=== PATIENT | female | born 1985 | race Caucasian/White ===

== ENCOUNTER 2020-12-01 14:01 | Emergency (ER) | payer BC ==
[~2020-12-01] VITALS: Ht 177.8 cm; Wt 90.7 kg
[~2020-12-01 14:01] MED LIST: Mirena1 EACH VG
[2020-12-01] MEDS ORDERED: Norco 10-325 T1 EACH PO (16:19)
[2020-12-01] MEDS ORDERED: ONDA4ODT MM (16:19)
== END 2020-12-01 16:36 | disposition home or self-care (01) ==
LOC: ER 14:01
DX: S89.92XA Unspecified injury of left lower leg, initial encounter (principal); V86.56XA Driver of dirt bike or motor/cross bike injured in nontraffic accident, initial encounter; Y99.1 Military activity
CPT/HCPCS: 29505; 73562-LT; 99283-25; A9270

== ENCOUNTER 2020-12-17 12:11 | Day surgery (SDC) | payer BC ==
[~2020-12-17] VITALS: Ht 172.7 cm; Wt 84.2 kg
[~2020-12-17 12:11] MED LIST changes: +Norco 10-325 T1 EACH PO; +ONDA4ODT MM
--- NOTE | 2020-12-17 13:13 | NUR ---
12/17/20 1313 Raissa Oropeza BLOOD DRAWN AND ANTICOAG IS ADDED TO SPECIMEN AND THEN DELIVERED TO THE OR TO BE SPUN.
[2020-12-17] MEDS ORDERED: ASPI325 (13:44)
--- NOTE | 2020-12-17 15:06 | NUR ---
12/17/20 1506 Eulalio Le 1MG OF EPI ADDED TO FIRST 3 BAGS OF LR USED FOR JOINT IRRIGATION.
--- NOTE | 2020-12-17 18:02 | NUR ---
12/17/201801 Ashley Rivera PT BECAME NAUSEOUS UPON TRANSFERING FROM BED TO CHAIR. PT IN BED, VSS, TOLERATING LIQUID. PT REPORTS NO PAIN IN OPERATIVE LEG. EMESIS BAG WITHIN REACH. PT GIVEN ZOFRAN 4MG IV WITH SOME RELIEF.
== END 2020-12-17 19:00 | disposition home or self-care (01) ==
LOC: ORSCSDS 12:11
PROVIDERS: Orthopaedic Surgery
PROC: 0SBD4ZZ Excision of Left Knee Joint, Percutaneous Endoscopic Approach (ICD-10-PCS; principal; 2020-12-17 13:15)
PROC: 0MRP47Z Replacement of Left Knee Bursa and Ligament with Autologous Tissue Substitute, Percutaneous Endoscopic Approach (ICD-10-PCS; principal; 2020-12-17 13:15)
DX: S83.512A Sprain of anterior cruciate ligament of left knee, initial encounter (principal); S83.005A Unspecified dislocation of left patella, initial encounter; S83.412A Sprain of medial collateral ligament of left knee, initial encounter; M23.672 Other spontaneous disruption of capsular ligament of left knee; S83.282A Other tear of lateral meniscus, current injury, left knee, initial encounter; V29.9XXA Motorcycle rider (driver) (passenger) injured in unspecified traffic accident, initial encounter
CPT/HCPCS: C1713; C1762; J0171; J0690; J1100; J1885; J2250; J2405; J2550; J2704; J2765; J3010; J7120

== ENCOUNTER 2021-03-25 07:07 | Day surgery (SDC) | payer BC ==
[~2021-03-25] VITALS: Ht 172.7 cm; Wt 80.6 kg
[~2021-03-25 07:07] MED LIST changes: +ASPI325
--- NOTE | 2021-03-25 08:12 | NUR ---
03/25/21 0812 Raissa Oropeza BLOOD DRAWN FOR PRP, ANTICOAG ADDED TO SPECIMEN, SPECIMIN DELIVERED TO OR AND SPUN.
--- NOTE | 2021-03-25 09:05 | NUR ---
03/25/21 0905 Mercedes Schilling BUPIVACAINE 0.5% 30ML MIXED WITH EPI 0.15MG FOR A MIXTURE OF BUPIVACAINE 0.5% W/EPI 1:200,000 EPI 1MG MIXED INTO EACH OF FIRST 3 3000ML LR PER DOCTOR ORDERS
== END 2021-03-25 11:51 | disposition home or self-care (01) ==
LOC: ORSCSDS 07:07
PROVIDERS: Orthopaedic Surgery
PROC: 0LQM0ZZ Repair Left Upper Leg Tendon, Open Approach (ICD-10-PCS; principal; 2021-03-25 08:30)
PROC: 0SND4ZZ Release Left Knee Joint, Percutaneous Endoscopic Approach (ICD-10-PCS; principal; 2021-03-25 08:30)
PROC: 0SBD4ZZ Excision of Left Knee Joint, Percutaneous Endoscopic Approach (ICD-10-PCS; principal; 2021-03-25 08:30)
DX: M24.662 Ankylosis, left knee (principal); S76.112A Strain of left quadriceps muscle, fascia and tendon, initial encounter
CPT/HCPCS: J0171; J0690; J1100; J1885; J2405; J2704; J2795; J3010; J7120